=== PATIENT | male | born 1990 | race Caucasian/White ===

== ENCOUNTER 2018-05-29 19:42 | Emergency (ER) | payer OTHER ==
[~2018-05-29] VITALS: Ht 180.3 cm; Wt 56.2 kg
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
[2018-05-29] MEDS ORDERED: Bacitracin Oint UD TOPIC ONE (20:45)
[2018-05-29 20:53] VITALS: BP 124/77
--- NOTE | 2018-05-30 11:01 | Diagnostic Imaging Report ---
Indication: Right hand pain Technique: 3 views right hand Comparison: none Findings: No acute fractures. No dislocations. The joint spaces are preserved. Impression: Negative
--- NOTE | 2018-05-30 11:02 | Diagnostic Imaging Report ---
Clinical Indication:Wrist pain Technique: 3 views of the right wrist Comparison: None Findings: No acute fractures. No dislocations. The joint spaces are preserved Impression: Negative
== END 2018-05-29 20:53 | disposition home or self-care (01) ==
LOC: EMR 20:28
DX: S60.211A Contusion of right wrist, initial encounter (principal); V29.88XA Motorcycle rider (driver) (passenger) injured in other specified transport accidents, initial encounter; Y92.410 Unspecified street and highway as the place of occurrence of the external cause; M54.2 Cervicalgia; T30.0 Burn of unspecified body region, unspecified degree; T23.091A Burn of unspecified degree of multiple sites of right wrist and hand, initial encounter
CPT/HCPCS: 99284